=== PATIENT | female | born 1980 | race Caucasian/White ===

== ENCOUNTER 2016-05-24 13:56 | Day surgery (SDC) | payer OTHER ==
[~2016-05-24] VITALS: Ht 165.1 cm; Wt 83.1 kg
[~2016-05-24 13:56] MED LIST: AMOXICILLIN 50500 MG PO; AMOXICILLIN 8751 TAB PO; ANTIVERT 25MG25 MG PO; BACTRIM DS 8001 TAB PO; BENADRYL 50MG C50 MG PO; CEPHALEXIN500 M1 PO; CIPRO 250MG TA250 MG PO; KEFLEX500 MG PO; LORTAB 5/500 501 TAB PO; LORTAB 7.5/5001 TAB PO; MECLIZINE12.5 MG PO; MOTRIN 800800 MG/TAB PO; MUCINEX 60600 MG/TA1 PO; NAPROSYN500 MG PO; NO HOME MEDICATIONS; NORCO 325 MG-7.1 TAB PO; PEN-VEE K500 MG PO; PENICILLIN V250 MG PO; PEPCID 20MG TAB20 MG PO; PERCOCET 325 MG1 TA2 PO; PREDNISONE20 MG PO; PYRIDIUM 100MG100 MG PO; STEROID CREAM
[2016-05-24 14:27] VITALS: BP 131/89; PULSE 84; TEMP 97.8
[2016-05-24] MEDS ORDERED: PREDNISONE20 MG PO (14:37)
[2016-05-24] MEDS ORDERED: ZOLOFT 50MG50 MG PO (14:37)
[2016-05-24 16:25] VITALS: BP 131/89; PULSE 94
[2016-05-24 16:40] VITALS: BP 113/79; PULSE 83
[2016-05-24 16:55] VITALS: BP 105/70; PULSE 75
== END 2016-05-24 16:50 | disposition home or self-care (01) ==
LOC: SDCO 13:56
DX: R19.5 Other fecal abnormalities (principal); K62.89 Other specified diseases of anus and rectum; K64.1 Second degree hemorrhoids
CPT/HCPCS: J2250; J2405; J3010